=== PATIENT | male | born 1975 | race Caucasian/White ===

== ENCOUNTER 2019-03-14 05:19 | Emergency (ER) | payer BC ==
[2019-03-14] MEDS ORDERED: Ibuprofen 400 MG Tab PO ONE (05:48)
[2019-03-14] MEDS ORDERED: Acetaminophen 325 MG Tab PO ONE (05:48)
--- NOTE | 2019-03-14 05:53 | EDM.PDOC ---
ED [facility] GENERAL MEDICAL PROBLEM - General Chief Complaint: Back Pain or Injury Stated Complaint: LOWER BACK PAIN Time Seen by Provider: 03/14/19 05:51 Source of Information: Reports: Patient History Limitations: Reports: No Limitations - History of Present Illness INITIAL COMMENTS - FREE TEXT/NARRATIVE: Patient is 43-year-old male with no past medical history presenting with chief complaint of low back pain. Patient states the pain is been going on for 2 days. Patient states pain is aggravated with heavy lifting with his work. Patient states pain is fairly constant and gradually worsening over time. Patient denies taking medication for the pain. Patient denies fevers, chills, numbness, paresthesias, leg weakness. Patient has any urinary complaints. Patient has not had similar episodes of pain. Patient denies any systemic symptoms and otherwise feels well In addition to that documented in the HPI above, the additional ROS was obtained : Constitutional: Denies fevers or chills Eyes: Denies vision changes ENMT: Denies sore throat CV: Denies chest pain Resp: Denies SOB GI: Denies vomiting or diarrhea : Denies painful urination MSK: Denies recent trauma Skin: Denies new rashes Neuro: Denies new numbness or tingling or weakness Endocrine: Denies unexpected weight loss Heme: Denies bleeding disorders I have reviewed the triage vital signs Const: Well nourished, well developed, appears stated age Eyes: PERRL, no conjunctival injection HENT: NCAT, Neck supple without meningismus CV: RRR, Warm, well-perfused extremities RESP: CTAB, Unlabored respiratory effort GI: soft, non-tender, non-distended, no masses MSK: No gross deformities appreciated. No CVA tenderness. Skin: Warm, dry. No rashes Neuro: Alert, apparel manager II-XII grossly intact. Sensation and motor function of extremities grossly intact. Psych: Appropriate mood and affect Bilateral Lower Back Pain Score (Numeric/FACES): 0 - Related Data Allergies Allergy/AdvReac Type Severity Reaction Status Date / Time No Known Allergies Allergy Verified 03/14/19 05:36 Home Meds: Home Meds . [No Known Home Meds] 03/14/19 [History] Past Medical History - Past Health History Medical/Surgical History: Denies Medical/Surgical History Psychiatric History: Reports: None - Infectious Disease History Infectious Disease History: Reports: None Social & Family History - Tobacco Use Smoking Status *Q: Never Smoker - Recreational Drug Use Recreational Drug Use: No ED ROS GENERAL - Review of Systems Review Of Systems: See Below ED EXAM,LOWER BACK PAIN/INJURY - Physical Exam Exam: See Below Course - Vital Signs Last Recorded V/S: Last Vital Signs Temp 36.2 C 03/14/19 05:31 Pulse 75 03/14/19 05:31 Resp 16 03/14/19 05:31 BP 135/75 03/14/19 05:31 Pulse Ox 96 03/14/19 05:31 - Orders/Labs/Meds Labs: Laboratory Tests 03/14/19 Range/Units 05:50 Urine Color YELLOW Urine Appearance CLEAR Urine pH 6.5 (5.0-8.0) Ur Specific [place] 1.015 (1.001-1.035) Urine Protein NEGATIVE (NEGATIVE) mg/dL Urine Glucose (UA) NEGATIVE (NEGATIVE) mg/dL Urine Ketones NEGATIVE (NEGATIVE) mg/dL Urine Occult Blood NEGATIVE (NEGATIVE) Urine Nitrite NEGATIVE (NEGATIVE) Urine Bilirubin NEGATIVE (NEGATIVE) Urine Urobilinogen 0.2 (<2.0) EU/dL Ur Leukocyte Esterase NEGATIVE (NEGATIVE) Urine RBC 0-1 (0-2/HPF) Urine WBC 0-1 (0-5/HPF) Ur Epithelial Cells RARE (NONE-FEW) Urine Bacteria RARE (NEGATIVE) Meds: Medications Discontinued Medications Generic Name Dose Route Start Last Admin Trade Name Gerardq PRN Reason Stop Dose Admin Acetaminophen 650 mg 03/14/19 05:48 03/14/19 06:15 Tylenol PO 03/14/19 05:49 650 mg NOW ONE Administration Ibuprofen 400 mg 03/14/19 05:48 03/14/19 06:15 Motrin PO 03/14/19 05:49 400 mg ONETIME ONE Administration Departure - Departure Time of Disposition: 06:32 Disposition: Home, Self-Care 01 Condition: Good Clinical Impression: Back pain - Discharge Information Instructions: Muscle Strain, [place]ugh-[place]we Referrals: PCP,None [Primary Care Provider] - Forms: ED Department Discharge Additional Instructions: The following information is given to patients seen in the emergency department who are being discharged to home. This information is to outline your options for follow-up care. We provide all patients seen in our emergency department with a follow-up referral. The need for follow-up, as well as the timing and circumstances, are variable depending upon the specifics of your emergency department visit. If you don't have a primary care physician on staff, we will provide you with a referral. We always advise you to contact your personal physician following an emergency department visit to inform them of the circumstance of the visit and for follow-up with them and/or the need for any referrals to a consulting specialist. The emergency department will also refer you to a specialist when appropriate. This referral assures that you have the opportunity for follow-up care with a specialist. All of these measure are taken in an effort to provide you with optimal care, which includes your follow-up. Under all circumstances we always encourage you to contact your private physician who remains a resource for coordinating your care. When calling for follow-up care, please make the office aware that this follow-up is from your recent emergency room visit. If for any reason you are refused follow-up, please contact the [facility] Emergency Department at and asked to speak to the emergency department charge nurse. Sepsis Event Note - Evaluation Sepsis Screening Result: No Definite Risk - Focused Exam Vital Signs: Vital Signs Temp Pulse Resp BP Pulse Ox 03/14/19 05:31 36.2 C 75 16 135/75 96 Date Exam was Performed: 03/14/19 Time Exam was Performed: 06:31 - Assessment/Plan Assessment:: She is 40-year-old male presenting with low back pain. Pain is consistent more likely with musculoskeletal pain as opposed to renal colic. Patient will have a UA performed. The UA is negative for any red blood cells, therefore having concern is much less likely. Also considered the diagnosis was cauda equina however this is also less likely given the nature of his symptoms and physical exam. Patient instructed to avoid heavy lifting objects weighing more than 30 pounds. Patient also instructed on pain control and return precautions. All questions addressed and answered. Patient agrees with plan
== END 2019-03-14 06:58 | disposition home or self-care (01) ==
LOC: MW.ED 05:19
DX: M54.5 Low back pain (principal)
CPT/HCPCS: 81001; 99283; A9270

== ENCOUNTER 2022-12-21 09:40 | Day surgery (SDC) | payer BC ==
[~2022-12-21 09:40] MED LIST: Lactated Ringers 1,000 ML IV SCH
[2022-12-21] MEDS ORDERED: Ondansetron 4 MG/2 ML SDV IVPUSH ONE (09:41)
[2022-12-21] MEDS ORDERED: Lidocaine 2% 5 ML SDV INJECT ONE (09:41)
[2022-12-21] MEDS ORDERED: propofoL 50 ML ONE (10:38)
== END 2022-12-21 12:00 | disposition home or self-care (01) ==
LOC: MW.SDS 09:40
PROVIDERS: ATTEND Surgery
DX: Z12.11 Encounter for screening for malignant neoplasm of colon (principal); K57.30 Diverticulosis of large intestine without perforation or abscess without bleeding; K62.89 Other specified diseases of anus and rectum; K64.5 Perianal venous thrombosis; Z98.890 Other specified postprocedural states
CPT/HCPCS: 45378; J2704; J7120; J2405; J3490

== ENCOUNTER 2024-05-04 01:14 | Emergency (ER) | payer SELFPAY ==
[2024-05-04] MEDS: Ibuprofen 600 MG Tab PO ONE (01:53)
[2024-05-04] MEDS: Lidocaine 1% PF 2 ML SDV INJECT ONE (03:07)
[2024-05-04] MEDS: cefTRIAXone 1 GM Vial IM ONE (03:07)
== END 2024-05-04 03:10 | disposition home or self-care (01) ==
LOC: MW.ED 01:14
DX: S62.632D Displaced fracture of distal phalanx of right middle finger, subsequent encounter for fracture with routine healing (principal); S62.634D Displaced fracture of distal phalanx of right ring finger, subsequent encounter for fracture with routine healing; Z79.899 Other long term (current) drug therapy; Z75.8 Other problems related to medical facilities and other health care; W23.1XXD Caught, crushed, jammed, or pinched between stationary objects, subsequent encounter
CPT/HCPCS: 73120; 96372; 99283; A9270; J0696; J3490